=== PATIENT | female | born 1960 | race Caucasian/White ===

== ENCOUNTER 2024-04-21 12:09 | Outpatient (CLI) | payer OTHER, SELFPAY ==
--- NOTE | 2024-04-21 13:11 | W.PM.STED ---
Stress Test Note Date Date Seen: 04/21/24 Date of test: 04/21/24 Providers Primary care provider: Glenna Wilcox Stress test physician: Lorena Melissa Stress Test Note Stress test ordered: Stress Echo Indication for test: Dyspnea on exertion Stress test medicine: Definity Results discussion: Resting EKG: Sinus rhythm, 90 beats per minute, some artifact. Resting blood pressure: 103/70 Stress test: Patient was consented on initially dobutamine stress echo. She stated and was adamant that she could walk on the treadmill. Per patient's request on discussion of the 2 different stress tests, she did want to proceed with the treadmill stress echo. Patient exercised to 4 minutes 12 seconds requesting to stop due to dyspnea. She had no chest pain. Patient had equivalent of 6 Mets. She achieved a maximum heart rate of 141 beats per minute which was 106% of a calculated target heart rate of 133. She had a rate pressure product around 16,800 at termination of her stress test. She had no definite EKG changes indicating any ischemia. She had appropriate increase of her blood pressure, last 1 obtained prior to cessation of exercise was 120/70. There was no arrhythmia. Echo images were obtained and are pending Cardiology read. Impression: Subjectively symptomatic with dyspnea on exertion, objectively negative EKG portion of this stress echo. Poor exercise tolerance noted. Follow up suggested: Patient is discharged from the stress test in stable condition, recovered. She will await the echo images to couple this for a full formal diagnostic. Her primary is with Luke.
[2024-04-21] MEDS: PERFLUTREN LIPID MICROSPHERES 2 ML VIAL IV (13:25)
[2024-04-21 13:59] VITALS: BP 133/81; PULSE 114
== END 2024-04-21 12:10 | disposition home or self-care (01) ==
LOC: STRESS 12:14
PROVIDERS: PCP Student in an Organized Health Care Education/Training Program; Visit Provider Student in an Organized Health Care Education/Training Program
DX: R06.09 Other forms of dyspnea (principal)
CPT/HCPCS: 93016; 93325; 93351; Q9957